=== PATIENT | female | born 1985 | race Caucasian/White ===

== ENCOUNTER 2021-06-07 21:43 | Emergency (ER) | payer BC ==
[~2021-06-07] VITALS: Ht 162.6 cm; Wt 64.7 kg
[2021-06-07 23:13] LABS: BASOPHILS % (AUTO) 0.6 % (0-1); EOSINOPHILS # (AUTO) 0.1 X10'3 (0-0.9); EOSINOPHILS % (AUTO) 1.4 % (0-6); HEMATOCRIT 37.7 % (35.0-45.0); HEMOGLOBIN 12.8 g/dl (12.0-16.0); LYMPHOCYTES # (AUTO) 1.6 X10'3 (1.1-4.8); LYMPHOCYTES % (AUTO) 23.6 % (21-51); MEAN CORPUSCULAR HEMOGLOBIN 30.2 PG (27.0-31.0); MEAN PLATELET VOLUME 8.5 FL (7.4-10.4); MONOCYTES # (AUTO) 0.6 X10'3 (0-0.9); MONOCYTES % (AUTO) 9.5 % (2-12); NEUTROPHILS # (AUTO) 4.4 X10'3 (1.8-7.7); NEUTROPHILS % (AUTO) 64.9 % (42-75); PLATELET COUNT 274 X10'3 (140-440); RED BLOOD COUNT 4.24 X10'6 (4.20-5.60); RED CELL DISTRIBUTION WIDTH 14.1 % (11.5-14.5); WHITE BLOOD COUNT 6.8 X10'3 (4.5-11.0)
[2021-06-07 23:37] LABS: ALANINE AMINOTRANSFERASE 21 U/L (12-78); ALBUMIN/GLOBULIN RATIO 1.1 (1.1-1.5); ALKALINE PHOSPHATASE 73 IU/L (46-116); ANION GAP 12 (8-16); ASPARTATE AMINO TRANSFERASE 10 U/L (10-37); BILIRUBIN,TOTAL 0.3 MG/DL (0.1-1.0); BLOOD UREA NITROGEN 8 MG/DL (7-18); BUN/CREATININE RATIO 14.8 (6.6-38.0); CALCIUM 8.9 MG/DL (8.5-10.1); CHLORIDE 104 MMOL/L (99-107); CREATININE 0.54 MG/DL (0.40-0.90); GLUCOSE 79 MG/DL (70-104); POTASSIUM 3.5 MMOL/L (3.5-5.1); SODIUM 140 MMOL/L (135-145); TOTAL CARBON DIOXIDE 24.5 MMOL/L (24-32); TOTAL PROTEIN 7.7 G/DL (6.4-8.2); eGFR > 90 ML/MIN
[2021-06-08 01:11] LABS: D-DIMER < 0.19 MG/L FEU (0-0.50)
[2021-06-08 01:26] LABS: CLARITY,URINE CLEAR (Clear); GLUCOSE, URINE NEGATIVE (Neg); KETONES,URINE NEGATIVE (Neg); LEUKOCYTE ESTERASE ,URINE MODERATE (Neg); NITRITES, URINE NEGATIVE (Neg); OCCULT BLOOD,URINE LARGE (Neg); PROTEIN,URINE NEGATIVE (Neg); UROBILINOGEN,URINE 0.2 E.U/dL (0.2-1.0)
[2021-06-08] MEDS ORDERED: iohexol 350MG/ML 100ml bottle IV ONE (01:30)
[2021-06-08 01:31] LABS: COLOR,URINE STRAW (Yellow); UA COLLECTION TYPE CLN CATCH MIDSTREAM
[2021-06-08 01:40] LABS: BACTERIA,URINE FEW /HPF (Neg); MUCUS STRANDS MODERATE /LPF (Neg); SQUAMOUS EPITHELIAL CELL,UR FEW /LPF (FEW)
[2021-06-08 01:41] LABS: WBC CLUMPS,URINE FEW /HPF (NEGATIVE)
--- NOTE | 2021-06-08 01:43 | NUR ---
paged for tele neuro consult @ 01:42
[2021-06-08 02:04] LABS: C-REACTIVE PROTEIN 0.07 MG/DL (0.0-0.5)
[2021-06-08] MEDS ORDERED: normal saline 1000ML IV soln IVB ONE (05:00)
--- NOTE | 2021-06-08 09:43 | NUR ---
pt went to use restroom with significant other lala any dizziness upon gtting up from bed and change in position.
--- NOTE | 2021-06-08 12:55 | NUR ---
dr juarez at bedside.
[2021-06-08] MEDS ORDERED: SERT100T PO (13:02)
[2021-06-08 13:18] VITALS: BP 100/66
== END 2021-06-08 13:20 | disposition home or self-care (01) ==
LOC: ER 21:45
DX: R51.9 Headache, unspecified (principal); R00.1 Bradycardia, unspecified; U09.9 Post COVID-19 condition, unspecified; R00.2 Palpitations; R07.89 Other chest pain; E03.9 Hypothyroidism, unspecified; F41.9 Anxiety disorder, unspecified; Z88.8 Allergy status to other drugs, medicaments and biological substances; Z79.899 Other long term (current) drug therapy
CPT/HCPCS: 36415; 70450; 70496; 70498; 70551; 71045; 80053; 81001; 83880; 84145; 84484; 85025; 85379; 85651; 86140; 86618; 87077; 87088; 87186; 93005; 96360; 99285; J7030; Q9967

== ENCOUNTER 2023-08-22 09:12 | Emergency (ER) | payer BC ==
[~2023-08-22] VITALS: Ht 167.6 cm; Wt 56.0 kg
[~2023-08-22 09:12] MED LIST: SERT100T PO
[2023-08-22 09:14] VITALS: TEMP 99
[2023-08-22] MEDS ORDERED: propranolol 10mg tablet PO ONE (11:30)
[2023-08-22 12:01] LABS: BILIRUBIN,URINE NEGATIVE (Neg); CLARITY,URINE CLEAR (Clear); COLOR,URINE YELLOW (Yellow); GLUCOSE, URINE NEGATIVE (Neg); KETONES,URINE NEGATIVE (Neg); LEUKOCYTE ESTERASE ,URINE NEGATIVE (Neg); NITRITES, URINE NEGATIVE (Neg); OCCULT BLOOD,URINE NEGATIVE (Neg); PH,URINE 7.5 (4.8-8.0); PROTEIN,URINE 30 mg/dl (Neg); UROBILINOGEN,URINE 0.2 E.U/dL (0.2-1.0)
[2023-08-22 12:06] LABS: BASOPHILS % (AUTO) 0.2 % (0-1); EOSINOPHILS % (AUTO) 0 % (0-6); HEMATOCRIT 39.5 % (35.0-45.0); HEMOGLOBIN 13.5 g/dl (12.0-16.0); LYMPHOCYTES # (AUTO) 0.5 X10'3 (1.1-4.8); LYMPHOCYTES % (AUTO) 5.3 % (21-51); MEAN CORPUSCULAR HEMOGLOBIN 30.4 PG (27.0-31.0); MEAN CORPUSCULAR HGB CONC 34.1 g/dL (33.0-36.5); MEAN CORPUSCULAR VOLUME 89.1 FL (78-98); MEAN PLATELET VOLUME 8.4 FL (7.4-10.4); MONOCYTES # (AUTO) 0.5 X10'3 (0-0.9); MONOCYTES % (AUTO) 4.5 % (2-12); PLATELET COUNT 243 X10'3 (140-440); RED BLOOD COUNT 4.43 X10'6 (4.20-5.60); RED CELL DISTRIBUTION WIDTH 13.2 % (11.5-14.5)
[2023-08-22 12:16] LABS: ALANINE AMINOTRANSFERASE 16 U/L (12-78); ALBUMIN/GLOBULIN RATIO 1.1 (1.1-1.5); ALKALINE PHOSPHATASE 70 IU/L (46-116); ANION GAP 9 (8-16); ASPARTATE AMINO TRANSFERASE 9 U/L (10-37); BILIRUBIN,TOTAL 0.5 MG/DL (0.1-1.0); BLOOD UREA NITROGEN 6 MG/DL (7-18); BUN/CREATININE RATIO 10.5 (10.0-20.0); CALCIUM 9.2 MG/DL (8.5-10.1); CHLORIDE 101 MMOL/L (99-107); CREATININE 0.57 MG/DL (0.40-0.90); GLUCOSE 96 MG/DL (70-104); POTASSIUM 3.6 MMOL/L (3.5-5.1); SODIUM 136 MMOL/L (135-145); TOTAL CARBON DIOXIDE 26.5 MMOL/L (24-32); TOTAL PROTEIN 7.6 G/DL (6.4-8.2); eCRCL 121 ML/MIN; eGFR > 90 ML/MIN
[2023-08-22 12:21] LABS: UA COLLECTION TYPE CLN CATCH MIDSTREAM
[2023-08-22 12:26] LABS: FREE T4 (FREE THYROXINE) 2.84 NG/DL (0.73-1.40)
[2023-08-22 12:27] LABS: WBC,URINE 0-4 /HPF (0-4)
[2023-08-22 12:28] LABS: BACTERIA,URINE NONE SEEN /HPF (Neg); MUCUS STRANDS FEW /LPF (Neg); SQUAMOUS EPITHELIAL CELL,UR FEW /LPF (FEW)
[2023-08-22 12:28] LABS: THYROID STIMULATING HORMONE < 0.01 ulU/ml (0.34-4.50)
[2023-08-22] MEDS: propranolol 10mg tablet PO ONE (12:57)
[2023-08-22] MEDS: normal saline 1000ml 1,000 ML IV ONE (12:59)
[2023-08-22] MEDS ORDERED: METH-604 PO (13:22)
[2023-08-22] MEDS ORDERED: PROP10TA10 PO (13:22)
[2023-08-22] MEDS ORDERED: [UNRECOGNIZED DRUG - CODE] PO (13:23)
[2023-08-22] MEDS: ondansetron/PF 4mg/2ml inj IV ONE (13:24)
[2023-08-22 14:10] VITALS: BP 115/73; PULSE 81; RESP 18; O2SAT 100
== END 2023-08-22 14:12 | disposition home or self-care (01) ==
LOC: ER 09:12
DX: E05.90 Thyrotoxicosis, unspecified without thyrotoxic crisis or storm (principal); E03.9 Hypothyroidism, unspecified; Z88.5 Allergy status to narcotic agent; Z79.899 Other long term (current) drug therapy
CPT/HCPCS: 36415; 80053; 81001; 84145; 84439; 84443; 85025; 96360; 99283; J7030